=== PATIENT | female | born 1950 | race Hispanic/Latino ===

== ENCOUNTER 2022-10-27 19:34 | Emergency (ER) | payer OTHER, MEDICARE ==
[2022-10-27] MEDS ORDERED: MORPHINE 4 MG SYG IVP ONE (20:30)
[2022-10-27] MEDS ORDERED: ONDANSETRON 4MG INJ IVP ONE (20:30)
[2022-10-27] MEDS ORDERED: ONDANSETRON 4MG INJ ONE (20:52)
[2022-10-27] MEDS ORDERED: MORPHINE 4 MG SYG IM ONE ×2 (21:00→23:00)
[2022-10-27] MEDS ORDERED: ONDANSETRON 4MG TABLET PO ONE (21:00)
[2022-10-27 21:15] LABS: BASOPHILS % (AUTO) 0.2 % (0.0-5.0); EOSINOPHILS % (AUTO) 0.3 % (0.0-8.0); HEMATOCRIT 30.2 % (36-48); LYMPHOCYTES % (AUTO) 2.3 % (21.0-51.0); MEAN CORPUSCULAR HEMOGLOBIN 27.5 pg (27.0-33.0); MEAN CORPUSCULAR HGB CONC 33.4 g/dL (32.0-36.0); MEAN CORPUSCULAR VOLUME 82.3 fL (79-99); MONOCYTES % (AUTO) 5.6 % (3.0-13.0); NEUTROPHILS % (AUTO) 90.5 % (40.0-77.0); PLATELET COUNT (AUTO) 161 K/uL (130-400); RED BLOOD CELL COUNT(AUTO) 3.67 MIL/uL (4.00-5.50); RED CELL DISTRIBUTION WIDTH 15.5 % (11.0-15.5); WHITE BLOOD COUNT (AUTO) 6.4 K/uL (4.8-10.8)
[2022-10-27 21:27] LABS: CREATININE 0.7 mg/dL (0.5-1.5)
[2022-10-27 21:31] LABS: MAGNESIUM 1.5 mg/dL (1.80-2.40); TOTAL PROTEIN, SERUM 4.7 g/dL (6.0-8.3)
[2022-10-27] MEDS ORDERED: MAGNESIUM OXIDE 400 MG TABLET PO ONE (22:30)
[2022-10-27 22:54] VITALS: BP 133/79
[2022-10-29] MEDS ORDERED: ATOR40TA71 PO (15:32)
[2022-10-29] MEDS ORDERED: TRAM50TA4 PO (15:36)
[2022-10-29] MEDS ORDERED: LETR2.5T7 PO (15:36)
[2022-10-29] MEDS ORDERED: METF-444 PO (15:36)
[2022-10-29] MEDS ORDERED: METO25TA6 PO (15:36)
== END 2022-10-27 23:16 | disposition home or self-care (01) ==
LOC: EDH 19:34
DX: M84.522A Pathological fracture in neoplastic disease, left humerus, initial encounter for fracture (principal); E87.1 Hypo-osmolality and hyponatremia; E83.42 Hypomagnesemia; Z76.89 Persons encountering health services in other specified circumstances; I10 Essential (primary) hypertension; E11.9 Type 2 diabetes mellitus without complications; E78.00 Pure hypercholesterolemia, unspecified
CPT/HCPCS: 99284; 83735; 80053; 83690; 85025; 36415; 71045; 73060; 73020; 96372 ×2; J2405; J2270 ×2